=== PATIENT | male | born 1980 | race Caucasian/White ===

== ENCOUNTER 2019-09-22 13:36 | Emergency (ER) | payer OTHER ==
[2019-09-22 13:43] VITALS: BP 137/81; PULSE 55; RESP 20; TEMP 97.9
[2019-09-22] MEDS ORDERED: SODIUM CHLORIDE 0.9% 1,000 ML IV STA (14:07)
[2019-09-22] MEDS ORDERED: ONDANSETRON 4 MG/2 ML VIAL IVP STA (14:07)
[2019-09-22] MEDS ORDERED: LIDOCAINE 4% CREAM 5 GM TUBE TOPICAL ONE (14:08)
[2019-09-22 14:21] LABS: Basophils # (A) 0.1 k/uL (0-0.2); Basophils % (A) 1 %; Eosinophils # (A) 0.2 k/uL (0-0.7); Eosinophils % (A) 2 %; HCT 53.4 % (39.0-53.0); HGB 17.6 gm/dL (13.0-17.5); Lymphocytes # (A) 2.1 k/uL (1.0-4.8); Lymphocytes % (A) 19 %; MCH 30.8 pg (25.0-35.0); MCHC 32.9 g/dL (31.0-37.0); MCV 93.7 fL (80.0-100.0); Mean Platelet Volume 9.5; Monocytes # (A) 0.6 k/uL (0-1.0); Monocytes % (A) 6 %; Neutrophils % (A) 72 %; Platelet Count 213 k/uL (150-450); RDW 12.7 % (11.5-15.5); WBC 11.2 k/uL (3.8-10.6)
[2019-09-22 14:24] LABS: Appearance,Urine Clear (Clear); Bilirubin,Urine Negative (Negative); Blood,Urine Negative (Negative); Color,Urine Light Yellow; Glucose,Urine (UA) Negative (Negative); Ketones,Urine Negative (Negative); Leukocyte Esterase,Urine Negative (Negative); Nitrite,Urine Negative (Negative); PH, Urine 6.5 (5.0-8.0); Protein,Urine Negative (Negative); Specific Gravity,Urine 1.008 (1.001-1.035); Urobilinogen,Urine <2.0 mg/dL (<2.0)
--- NOTE | 2019-09-22 14:32 | ED ---
Abdominal Pain HPI - General Chief Complaint: Abdominal Pain Stated Complaint: pain and bleeding, anal region Time Seen by Provider: 09/22/19 13:59 Source: patient, RN notes reviewed Mode of arrival: ambulatory Limitations: no limitations - History of Present Illness Initial Comments: 39-year-old male presents emergency Department chief complaint of abdominal pain. Patient states that he's had on-and-off abdominal pain for last 8-9 years. Patient states she's had intermittent bleeding which has been evaluated with 3 colonoscopies with known polyps. Patient states that his mother and father both had colon cancer. Patient has been screened several times secondary to bleeding, pain and family history. Patient states that this pain increasing last couple days and he was seen at [facility] and sent here for further evaluation. He states he has a fullness sensation in his rectum and he states that it feels like something is protruding. Patient denies any dysuria, hematuria denies any melanotic stools. Patient had no recent fevers chills chest pain shortness of breath no episodes of fatigue. - Related Data Previous Rx's Medication Instructions Recorded Hydrocortisone/Pramoxine 1 applic RECTAL BID #1 bottle 09/22/19 [Proctofoam-Hc 1%-1% Foam] Lidocaine [Lidocaine 5% Rectal 1 applic RECTAL Q3-4H #15 gm 09/22/19 Cream] Allergies Allergy/AdvReac Type Severity Reaction Status Date / Time No Known Allergies Allergy Verified 09/22/19 13:43 Review of Systems ROS Statement: Those systems with pertinent positive or pertinent negative responses have been documented in the HPI. ROS Other: All systems not noted in ROS Statement are negative. Past Medical History Past Medical History: No Reported History History of Any Multi-Drug Resistant Organisms: None Reported Additional Past Surgical History / Comment(s): colon polyps removed, Past Psychological History: Depression Smoking Status: Current every day smoker Past Alcohol Use History: None Reported Past Drug Use History: Marijuana General Exam Limitations: no limitations General appearance: alert, in no apparent distress Head exam: Present: atraumatic, normocephalic, normal inspection Eye exam: Present: normal appearance, PERRL, EOMI. Absent: scleral icterus, conjunctival injection, periorbital swelling ENT exam: Present: normal exam, normal oropharynx, mucous membranes moist Neck exam: Present: normal inspection, full ROM. Absent: tenderness, meningismu s, lymphadenopathy Respiratory exam: Present: normal lung sounds bilaterally. Absent: respiratory distress, wheezes, rales, rhonchi, stridor Cardiovascular Exam: Present: regular rate, normal rhythm, normal heart sounds. Absent: systolic murmur, diastolic murmur, rubs, gallop, clicks GI/Abdominal exam: Present: soft, tenderness (Minimal diffuse), normal bowel sounds. Absent: distended, guarding, rebound, rigid Back exam: Absent: CVA tenderness (R), CVA tenderness (L) Skin exam: Present: warm, dry, intact, normal color. Absent: rash Course Vital Signs 09/22/19 13:39 Temperature 97.9 F Pulse Rate 55 L Respiratory 20 Rate Blood Pressure 137/81 O2 Sat by Pulse 100 Oximetry Medical Decision Making - Medical Decision Making 39-year-old male presented for rectal pain, abdominal pain. He's had ongoing issues associated this. He does have an external hemorrhoid which is thrombosed, protruding. He will follow-up with surgery for hemorrhoidectomy and possible colonoscopy. Patient we discharged with Proctofoam, lidocaine return parameters were discussed. - Lab Data Result diagrams: 09/22/19 13:55 09/22/19 13:55 Lab Results 09/22/19 09/22/19 09/22/19 Range/Units 13:55 13:55 13:55 WBC 11.2 H (3.8-10.6) k/uL RBC 5.70 (4.30-5.90) m/uL Hgb 17.6 H (13.0-17.5) gm/dL Hct 53.4 H (39.0-53.0) % MCV 93.7 (80.0-100.0) fL MCH 30.8 (25.0-35.0) pg MCHC 32.9 (31.0-37.0) g/dL RDW 12.7 (11.5-15.5) % Plt Count 213 (150-450) k/uL Neutrophils % 72 % Lymphocytes % 19 % Monocytes % 6 % Eosinophils % 2 % Basophils % 1 % Neutrophils # 8.0 H (1.3-7.7) k/uL Lymphocytes # 2.1 (1.0-4.8) k/uL Monocytes # 0.6 (0-1.0) k/uL Eosinophils # 0.2 (0-0.7) k/uL Basophils # 0.1 (0-0.2) k/uL Sodium 142 (137-145) mmol/L Potassium 4.6 (3.5-5.1) mmol/L Chloride 105 (98-107) mmol/L Carbon Dioxide 30 (22-30) mmol/L Anion Gap 7 mmol/L BUN 11 (9-20) mg/dL Creatinine 0.92 (0.66-1.25) mg/dL Est GFR (CKD-EPI)AfAm >90 (>60 ml/min/1.73 sqM) Est GFR (CKD-EPI)NonAf >90 (>60 ml/min/1.73 sqM) Glucose 104 H (74-99) mg/dL Calcium 9.6 (8.4-10.2) mg/dL Total Bilirubin 0.4 (0.2-1.3) mg/dL AST 35 (17-59) U/L ALT 39 (4-49) U/L Alkaline Phosphatase 69 (38-126) U/L Total Protein 6.9 (6.3-8.2) g/dL Albumin 4.3 (3.5-5.0) g/dL Lipase 399 H (23-300) U/L Urine Color Light Yellow Urine Appearance Clear (Clear) Urine pH 6.5 (5.0-8.0) Ur Specific [place] 1.008 (1.001-1.035) Urine Protein Negative (Negative) Urine Glucose (UA) Negative (Negative) Urine Ketones Negative (Negative) Urine Blood Negative (Negative) Urine Nitrite Negative (Negative) Urine Bilirubin Negative (Negative) Urine Urobilinogen <2.0 (<2.0) mg/dL Ur Leukocyte Esterase Negative (Negative) Disposition Clinical Impression: Rectal pain, Internal hemorrhoid Disposition: ADMITTED IP TO THIS HOSP Instructions (If sedation given, give patient instructions): Hemorrhoids (ED) Additional Instructions: Please return to the Emergency Department if symptoms worsen or any other concerns. Prescriptions: Lidocaine [Lidocaine 5% Rectal Cream] 1 applic RECTAL Q3-4H #15 gm Hydrocortisone/Pramoxine [Proctofoam-Hc 1%-1% Foam] 1 applic RECTAL BID #1 bot tle Is patient prescribed a controlled substance at d/c from ED?: No Referrals: Michelle Stoddard MD [Primary Care Provider] - 1-2 days Americo Jones MD [STAFF PHYSICIAN] - 1-2 days Time of Disposition: 14:56
[2019-09-22 14:33] LABS: ALT 39 U/L (4-49); AST 35 U/L (17-59); African American GFR (CKD) >90 (>60 ml/min/1.73 sqM); Albumin 4.3 g/dL (3.5-5.0); Alkaline Phosphatase 69 U/L (38-126); Anion Gap 7 mmol/L; Blood Urea Nitrogen 11 mg/dL (9-20); Calcium 9.6 mg/dL (8.4-10.2); Carbon Dioxide 30 mmol/L (22-30); Chloride 105 mmol/L (98-107); Glucose 104 mg/dL (74-99); Non-African American GFR(CKD) >90 (>60 ml/min/1.73 sqM); Potassium 4.6 mmol/L (3.5-5.1); Sodium 142 mmol/L (137-145); Total Bilirubin 0.4 mg/dL (0.2-1.3); Total Protein 6.9 g/dL (6.3-8.2)
== END 2019-09-22 15:22 | disposition other institution (70) ==
LOC: EC 13:36
DX: K64.5 Perianal venous thrombosis (principal); K64.8 Other hemorrhoids; R10.9 Unspecified abdominal pain; F17.200 Nicotine dependence, unspecified, uncomplicated; Z86.010 Personal history of colon polyps; Z98.890 Other specified postprocedural states
CPT/HCPCS: 36415; 80053; 83690; 85025; 81003; 99284; 96374; 96361; J2405

== ENCOUNTER 2020-02-25 17:45 | Inpatient (IN) | payer OTHER ==
[2020-02-25 17:53] LABS: Glucose,Whole Blood 97 mg/dL (75-99)
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
[2020-02-25] MEDS ORDERED: SODIUM CHLORIDE 0.9% 1,000 ML IV STA (18:12)
[2020-02-25 18:14] LABS: Basophils # (A) 0.1 k/uL (0-0.2); Basophils % (A) 1 %; Eosinophils # (A) 0.2 k/uL (0-0.7); Eosinophils % (A) 2 %; HCT 47.7 % (39.0-53.0); HGB 16.7 gm/dL (13.0-17.5); Ionized Calcium 5.1 mg/dL (4.5-5.3); Lymphocytes # (A) 2.8 k/uL (1.0-4.8); Lymphocytes % (A) 26 %; MCH 31.7 pg (25.0-35.0); MCV 90.6 fL (80.0-100.0); Mean Platelet Volume 8.5; Monocytes # (A) 0.5 k/uL (0-1.0); Monocytes % (A) 5 %; Neutrophils # (A) 7.2 k/uL (1.3-7.7); Neutrophils % (A) 66 %; Platelet Count 289 k/uL (150-450); RBC 5.27 m/uL (4.30-5.90); WBC 10.9 k/uL (3.8-10.6)
[2020-02-25 18:21] LABS: ALT 30 U/L (4-49); AST 31 U/L (17-59); African American GFR (CKD) >90 (>60 ml/min/1.73 sqM); Albumin 3.9 g/dL (3.5-5.0); Alkaline Phosphatase 78 U/L (38-126); Anion Gap 9 mmol/L; Blood Urea Nitrogen 12 mg/dL (9-20); Calcium 9.6 mg/dL (8.4-10.2); Carbon Dioxide 21 mmol/L (22-30); Chloride 108 mmol/L (98-107); Glucose 92 mg/dL (74-99); Magnesium 1.8 mg/dL (1.6-2.3); Non-African American GFR(CKD) >90 (>60 ml/min/1.73 sqM); Potassium 3.8 mmol/L (3.5-5.1); Sodium 138 mmol/L (137-145); Total Bilirubin 0.7 mg/dL (0.2-1.3); Total Protein 6.4 g/dL (6.3-8.2)
--- NOTE | 2020-02-25 18:35 | XR ---
EXAMINATION TYPE: XR chest 1V portable DATE OF EXAM: 02/25/2020 COMPARISON: NONE HISTORY: Arm numbness TECHNIQUE: Single view FINDINGS: Heart and mediastinum are normal. Lungs are clear. Diaphragm is normal. Bony thorax appears normal. There are chest leads. IMPRESSION: Normal chest. Normal heart.
[2020-02-25] MEDS ORDERED: NALOXONE 0.4 MG/ML 1 ML VIAL IV PRN (18:38)
[2020-02-25 18:46] LABS: VBG PH 7.47 (7.31-7.41)
[2020-02-25] MEDS: SODIUM CHLORIDE 0.9% 1,000 ML IV SCH (18:58)
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
[2020-02-25] MEDS ORDERED: VERAPAMIL 2.5 MG/ML 2 ML AMP ONE (19:03)
[2020-02-25] MEDS ORDERED: LIDOCAINE 1% INJ 10MG/ML (20 ML MDV) ONE (19:03)
[2020-02-25] MEDS ORDERED: LIDOCAINE 1% INJ 10MG/ML (20 ML MDV) SQ ONE (19:24)
[2020-02-25] MEDS ORDERED: MIDAZOLAM 2 MG/2 ML VIAL IVP ONE (19:24)
[2020-02-25] MEDS ORDERED: VERAPAMIL SYRINGE (5 MG/10 ML) INTRAARTER ONE ×2 (19:26→19:30)
[2020-02-25] MEDS ORDERED: IV FLUID CONTINUATION 500 ML IV ONE (19:32)
[2020-02-25] MEDS ORDERED: IOPAMIDOL-370 100ML BTL INJ ONE (19:40)
--- NOTE | 2020-02-25 19:43 | P.PCN ---
Date of Procedure: 02/25/20 Operative Findings: CARDIAC CATHETERIZATION PERFORMING PHYSICIAN: Will Cross MD, RPVI PROCEDURE PERFORMED: 1. Selective right and left coronary angiogram 2. Left heart catheterization INDICATION: This is a 39-year-old gentleman with significant history of smoking and significant family history of CAD presented to the emergency department by ambulance with a chest discomfort and EKG changes concerning for ischemia. Because of that a heart catheterization was advised COMPLICATION: None APPROACH: Right radial artery LEVEL OF SEDATION: Moderate was sedation length of 12 minutes PROCEDURE DESCRIPTION: After obtaining an informed consent, the patient was brought to cardiac laboratory mechanic helper. Local anesthesia was performed using lidocaine subcutaneously. The right radial artery was cannulated using Seldinger technique, the guidewire passed easily, following that we advanced a 5-Welsh sheath dilator assembly, the wire and dilator were removed and sheath was flushed. Following that, 2 mg of verapamil along with 5000 unit heparin were given. Selective right and left coronary angiogram using a 6-Welsh JR3.5 and JL 3.5 catheters. Following that we did left heart catheterization using 6-Welsh pigtail catheter. The procedure was completed there was no complication. SELECTIVE CORONARY ANGIOGRAM: The right coronary artery: Is a large caliber vessel and a dominant vessel. Its angiographically normal. Distally bifurcates into PDA and PLV branches and both appeared to be angiograp hically normal. Left main: It is angiographically normal. Bifurcates into LCx and LAD The left circumflex: Is a large caliber vessel and codominant vessel. The left circumflex itself is angiographically normal. Gives rises in the proximal portion into a large OM branch which appeared to be normal. The circumflex distally continue as a PDA branch and seems to be angiographically normal as well. The left anterior descending artery: Is a large caliber vessel. Its angiographically normal. Gives rises into multiple small diagonal branches a appeared to be angiographically normal. HEMODYNAMICS: The LVEDP was 12 mmHg without significant gradient across aortic valve CONCLUSION: 1. Normal coronary angiogram 2. Normal LVEDP POSTPROCEDURE MANAGEMENT: 1. Medical treatment 2. Rule out aortic dissection
--- NOTE | 2020-02-25 21:21 | CT ---
EXAMINATION TYPE: CT angio thor/abd pel aorta DATE OF EXAM: 02/25/2020 COMPARISON: None HISTORY: Rule out aortic dissection. CT DLP: 1210.9 mGycm Automated exposure control for dose reduction was used. CONTRAST: Performed without and with IV Contrast, patient injected with 100ml mL of Isovue 370. Images are obtained from the thoracic inlet to the floor the pelvis with IV contrast and 3-D post pro cessed images. There is groundglass interstitial infiltrate in the posterior lung malave. There is no evidence of a pulmonary mass. There is mild subsegmental atelectasis at the posterior lung bases. Heart size is nor mal. There is no pericardial effusion. There are no hilar masses. Thoracic aorta is intact. There is no aneurysm or dissection. Pulmonary arteries appear normal. I see no filling defect. Liver spleen pancreas gallbladder appear normal. Bile ducts are not dilated. There is no adrenal mass. Kidneys show satisfactory contrast opacification. There is no hydronephrosi s. Ureters are not dilated. Bladder distends smoothly. There is no inguinal hernia. There is no free fluid in the pelvis. Appendix is posterior and appears normal. There is no mesenteric edema. There is no ascites or free air. There is no bowel obstruction. There is normal contrast opacification of the abdominal aorta and the renal arteries. There is wide p atency of the iliac and femoral arteries. There is wide patency of the superior mesenteric artery. Th ere is a short segment of severe narrowing of the proximal celiac artery more than 85%. The bony thorax is intact. The bony pelvis is intact. Thoracic and lumbar spine appear normal. 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 No evidence of aortic aneurysm or dissection . No evidence of pulmonary embolism.
--- NOTE | 2020-02-26 11:14 | P.PN ---
Subjective Progress Note Date: 02/26/20 This is a 39-year-old gentleman with history of "heart attack" as well as history of smoking as well as significant family history of coronary artery disease presented to the emergency room complaining of left arm discomfort. The patient somewhat is a poor historian. He presented to the hospital with we akness and tiredness, symptoms of diaphoresis and discomfort in the left upper chest area. EKG reviewed in the emergency room showed ST elevation in the inferior leads and therefore the patient was taken to the cardiac catheterization lab by Dr. Rubi. Heart catheterization did not reveal any sign ificantly obstructive coronary artery disease. Subsequent to that patient underwent a CAT scan of the chest, did not reveal any evidence of aortic aneurysm or dissection and no evidence of pulmonary embolism. The patient was seen and examined this morning, he denies any chest discomfort but just feels tired and weak. Blood pressure 104/60 with a heart rate in the 50s, 97% on room air. Objective - Vital Signs Vital signs: Vital Signs Temp 97.6 F 02/26/20 04:00 Pulse 52 L 02/26/20 04:00 Resp 15 02/26/20 04:00 BP 104/64 02/26/20 04:00 Pulse Ox 97 02/26/20 04:00 Intake & Output 02/25/20 02/26/20 02/26/20 18:59 06:59 18:59 Intake Total 100 Balance 100 Weight 65.771 kg 63.8 kg Intake: IV 100 Other: Voiding Method Urinal - Exam PHYSICAL EXAMINATION: GENERAL: 39-year-old gentleman in no acute distress at the time of my examination HEENT: Head is atraumatic, normocephalic. Pupils equal, round. Sclera anicteric. Conjunctiva are clear. Mucous membranes of the mouth are moist. Neck is supple. There is no elevated jugular venous pressure. No carotid bruit is heard. HEART EXAMINATION: Heart S1, S2 normal. No murmur or gallop heard. CHEST EXAMINATION: Lungs are clear to auscultation and precussion. No chest wall tenderness is noted on palpation or with deep breathing. ABDOMEN: Soft, nontender. Bowel sounds are heard. No organomegaly noted. EXTREMITIES: 2+ peripheral pulses with no evidence of peripheral edema and no calf tenderness noted. Right radial site clean and dry, good distal pulse. NEUROLOGIC patient is awake, alert and oriented 3 . - Labs CBC & Chem 7: 02/25/20 18:03 02/25/20 18:03 Labs: Abnormal Lab Results - Last 24 Hours (Table) 02/25/20 02/25/20 02/25/20 Range/Units 18:03 18:03 18:03 WBC 10.9 H (3.8-10.6) k/uL VBG pH (7.31-7.41) VBG pCO2 (37-51) mmHg Chloride 108 H (98-107) mmol/L Carbon Dioxide 21 L (22-30) mmol/L Phosphorus (2.5-4.5) mg/dL PTH Intact 10.8 L (14.0-72.0) pg/mL 02/25/20 02/25/20 Range/Units 18:03 18:30 WBC (3.8-10.6) k/uL VBG pH 7.47 H (7.31-7.41) VBG pCO2 35 L (37-51) mmHg Chloride (98-107) mmol/L Carbon Dioxide (22-30) mmol/L Phosphorus 1.1 L (2.5-4.5) mg/dL PTH Intact (14.0-72.0) pg/mL Assessment and Plan Plan: Assessment and plan #1 symptoms of tiredness and weakness with associated left upper chest discomfort and left arm discomfort. Heat initial EKG suggestive of possible inferior STEMI. Cardiac catheterization was performed which did not reveal any significantly obstructive coronary artery disease. CTA of the chest was negative for any dissection, no evidence of pulmonary embolism. #2 nicotine dependence #3 family history of premature coronary artery disease Plan We have requested a sed rate, echocardiogram with Doppler study, and EKG be performed this morning. We've also put in for 2 subsequent troponins. Further recommendations to follow. DNP note has been reviewed, I agree with a documented findings and plan of care. Patient was seen and examined.
--- NOTE | 2020-02-26 12:29 | ECHOF ---
Referral Reason:chest pain MEASUREMENTS -------- HEIGHT: 170.2 cm WEIGHT: 63.5 kg BP: RVIDd: 2.4 cm (< 3.3) IVSd: 0.5 cm (0.6 - 1.1) LVIDd: 4.2 cm (3.9 - 5.3) LVPWd: 0.8 cm (0.6 - 1.1) IVSs: 1.1 cm LVIDs: 2.7 cm LVPWs: 1.3 cm LAESV Index (A-L): 15.72 ml/m Ao Diam: 2.7 cm (2.0 - 3.7) AV Cusp: 1.9 cm (1.5 - 2.6) LA Diam: 3.1 cm (2.7 - 3.8) MV EXCURSION: 18.525 mm (> 18.000) MV EF SLOPE: 115 mm/s (70 - 150) EPSS: 1.0 cm MV E Abrahan: 0.81 m/s MV DecT: 195 ms MV A Abrahan: 0.67 m/s MV E/A Ratio: 1.21 RAP: 5.00 mmHg RVSP: 20.06 mmHg FINDINGS -------- Sinus rhythm. This was a technically good study. The left ventricular size is normal. Left ventricular wall thickness is normal. Overall left vent ricular systolic function is normal with, an EF between 55 - 60 %. The diastolic filling pattern is normal for the age of the patient 7.13. The right ventricle is normal in size. The left atrial size is normal. Normal LA size by volume 22+/-6 ml/m2. The right atrial size is normal. The aortic valve is trileaflet and appears structurally normal. The mitral valve is normal. The mitral valve leaflets are mildly thickened. There is trace mitral regurgitation. The tricuspid valve appears structurally normal. Trace tricuspid regurgitation present. Right damari tricular systolic pressure is normal at < 35 mmHg. There is no pulmonic regurgitation present. The aortic root size is normal. Normal inferior vena cava with normal inspiratory collapse consistent with estimated right atrial pre ssure of 5 mmHg. There is no pericardial effusion. CONCLUSIONS -------- 1. Sinus rhythm. 2. This was a technically good study. 3. The left ventricular size is normal. 4. Left ventricular wall thickness is normal. 5. Overall left ventricular systolic function is normal with, an EF between 55 - 60 %. 6. The diastolic filling pattern is normal for the age of the patient 7.13 7. The right ventricle is normal in size. 8. The left atrial size is normal. 9. Normal LA size by volume 22+/-6 ml/m2. 10. The right atrial size is normal. 11. The aortic valve is trileaflet and appears structurally normal. 12. The mitral valve is normal. 13. The mitral valve leaflets are mildly thickened. 14. There is trace mitral regurgitation. 15. The tricuspid valve appears structurally normal. 16. Trace tricuspid regurgitation present. 17. Right ventricular systolic pressure is normal at < 35 mmHg. 18. There is no pulmonic regurgitation present. 19. The aortic root size is normal. 20. Normal inferior vena cava with normal inspiratory collapse consistent with estimated right atrial pressure of 5 mmHg. 21. There is no pericardial effusion. MAP EDITOR: Gill Barnes RDCS
[2020-02-26] MEDS ORDERED: HYDROcodone/APAP 7.5-325MG 1 EACH TAB PO PRN (13:21)
[2020-02-26] MEDS ORDERED: HYDROmorphone 0.5 MG/0.5 ML SYRINGE IVP PRN (13:21)
[2020-02-26] MEDS ORDERED: ALPRAZolam 0.25 MG TAB PO PRN (13:22)
[2020-02-26] MEDS ORDERED: TEMAZEPAM 15 MG CAP PO PRN (14:12)
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
[2020-02-26 16:21] LABS: ALT 25 U/L (4-49); AST 24 U/L (17-59); African American GFR (CKD) >90 (>60 ml/min/1.73 sqM); Albumin 3.2 g/dL (3.5-5.0); Alkaline Phosphatase 66 U/L (38-126); Anion Gap 5 mmol/L; Blood Urea Nitrogen 10 mg/dL (9-20); Calcium 8.6 mg/dL (8.4-10.2); Carbon Dioxide 25 mmol/L (22-30); Chloride 107 mmol/L (98-107); Glucose 95 mg/dL (74-99); Non-African American GFR(CKD) >90 (>60 ml/min/1.73 sqM); Potassium 4.4 mmol/L (3.5-5.1); Sodium 137 mmol/L (137-145); Total Bilirubin 0.3 mg/dL (0.2-1.3); Total Protein 5.4 g/dL (6.3-8.2)
[2020-02-26] MEDS: BACLOFEN 10 MG TAB PO SCH ×2 (17:53→22:18)
[2020-02-26 18:17] LABS: Appearance,Urine Clear (Clear); Bilirubin,Urine Negative (Negative); Blood,Urine Negative (Negative); Color,Urine Light Yellow; Glucose,Urine (UA) Negative (Negative); Ketones,Urine Negative (Negative); Leukocyte Esterase,Urine Negative (Negative); Nitrite,Urine Negative (Negative); PH, Urine 6.5 (5.0-8.0); Protein,Urine Negative (Negative); Specific Gravity,Urine 1.006 (1.001-1.035); Urobilinogen,Urine <2.0 mg/dL (<2.0)
[2020-02-27] MEDS: SODIUM CHLORIDE 0.9% 1,000 ML IV SCH ×2 (01:15→13:18)
[2020-02-27] MEDS: BACLOFEN 10 MG TAB PO SCH ×2 (05:56→13:18)
[2020-02-27] MEDS ORDERED: PANTOPRAZOLE 40 MG TABLET PO SCH (07:30)
[2020-02-27 08:55] LABS: Basophils # (A) 0.1 k/uL (0-0.2); Basophils % (A) 1 %; Eosinophils # (A) 0.2 k/uL (0-0.7); Eosinophils % (A) 3 %; HCT 47.1 % (39.0-53.0); HGB 15.1 gm/dL (13.0-17.5); Lymphocytes # (A) 2.2 k/uL (1.0-4.8); Lymphocytes % (A) 26 %; MCH 29.8 pg (25.0-35.0); MCV 93.2 fL (80.0-100.0); Mean Platelet Volume 8.5; Monocytes # (A) 0.5 k/uL (0-1.0); Monocytes % (A) 5 %; Neutrophils # (A) 5.4 k/uL (1.3-7.7); Neutrophils % (A) 63 %; Platelet Count 219 k/uL (150-450); RBC 5.06 m/uL (4.30-5.90); RDW 13.2 % (11.5-15.5); WBC 8.5 k/uL (3.8-10.6)
[2020-02-27] MEDS ORDERED: NICOTINE 14MG/24HR PATCH TRANSDERM SCH (09:00)
--- NOTE | 2020-02-27 12:19 | P.PN ---
Subjective Progress Note Date: 02/27/20 This is a 39-year-old gentleman with history of "heart attack" as well as history of smoking as well as significant family history of coronary artery disease presented to the emergency room complaining of left arm discomfort. The patient somewhat is a poor historian. He presented to the hospital with we akness and tiredness, symptoms of diaphoresis and discomfort in the left upper chest area. EKG reviewed in the emergency room showed ST elevation in the inferior leads and therefore the patient was taken to the cardiac catheterization lab by Dr. Rubi. Heart catheterization did not reveal any sign ificantly obstructive coronary artery disease. Subsequent to that patient underwent a CAT scan of the chest, did not reveal any evidence of aortic aneurysm or dissection and no evidence of pulmonary embolism. The patient was seen and examined this morning, he denies any chest discomfort but just feels tired and weak. Blood pressure 104/60 with a heart rate in the 50s, 97% on room air. 02/27/2020 Patient seen and examined this morning, hemodynamically stable, blood pressure 106/60 with a heart rate in the 50s to 60s. Echocardiogram with Doppler study was performed which revealed an ejection fraction of 55-60%. Sed rate was normal. Objective - Vital Signs Vital signs: Vital Signs Temp 97.9 F 02/27/20 03:20 Pulse 52 L 02/27/20 03:20 Resp 18 02/27/20 03:20 BP 105/65 02/27/20 03:20 Pulse Ox 96 02/27/20 03:20 Intake & Output 02/26/20 02/27/20 02/27/20 18:59 06:59 18:59 Intake Total 458 240 Balance 458 240 Weight 62.5 kg Intake: Oral 458 240 Other: Voiding Method Toilet Toilet # Voids 4 1 1 - Exam PHYSICAL EXAMINATION: GENERAL: 39-year-old gentleman in no acute distress at the time of my examination HEENT: Head is atraumatic, normocephalic. Pupils equal, round. Sclera anicteric. Conjunctiva are clear. Mucous membranes of the mouth are moist. Neck is supple. There is no elevated jugular venous pressure. No carotid bruit is heard. HEART EXAMINATION: Heart S1, S2 normal. No murmur or gallop heard. CHEST EXAMINATION: Lungs are clear to auscultation and precussion. No chest wall tenderness is noted on palpation or with deep breathing. ABDOMEN: Soft, nontender. Bowel sounds are heard. No organomegaly noted. EXTREMITIES: 2+ peripheral pulses with no evidence of peripheral edema and no calf tenderness noted. Right radial site clean and dry, good distal pulse. NEUROLOGIC patient is awake, alert and oriented 3 . - Labs CBC & Chem 7: 02/27/20 07:58 02/26/20 15:30 Labs: Abnormal Lab Results - Last 24 Hours (Table) 02/26/20 Range/Units 15:30 Total Protein 5.4 L (6.3-8.2) g/dL Albumin 3.2 L (3.5-5.0) g/dL Microbiology - Last 24 Hours (Table) 02/26/20 18:05 Urine Culture - Preliminary Urine,Clean Catch Assessment and Plan Plan: Assessment and plan #1 symptoms of tiredness and weakness with associated left upper chest discomfort and left arm discomfort. Heat initial EKG suggestive of possible inferior STEMI. Cardiac catheterization was performed which did not reveal any significantly obstructive coronary artery disease. CTA of the chest was negative for any dissection, no evidence of pulmonary embolism. #2 nicotine dependence #3 family history of premature coronary artery disease Plan From cardiology's perspective, patient may be able to be discharged home today. We'll make a follow-up appointment in the office with Dr. Rubi post discharge. DNP note has been reviewed, I agree with a documented findings and plan of care. Patient was seen and examined.
[2020-02-27 12:46] VITALS: PULSE 66; RESP 16
[2020-02-27 12:49] VITALS: BP 116/77; TEMP 98.2
--- NOTE | 2020-02-28 00:28 | DS ---
DISCHARGE SUMMARY DATE OF SERVICE: 02/27/2020 FINAL DIAGNOSES: 1. Chest pain, left-sided, possibly musculoskeletal, negative cardiac catheterization. 2. 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 3. Hypophosphatemia. 4. Low parathyroid hormone. 5. Increased WBC. 6. History of metal behind the right eye. 7. History of migraine. 8. History of depression. 9. History of nicotine dependence. 10.History of THC. HISTORY OF PRESENT ILLNESS: This 39-year-old gentleman with past medical history of multiple medical problems admitted with left-sided chest pain. Myocardial infarction was suspected initially. Cardiac cath showed no evidence of any coronary disease. Patient treated closely. CT scan showed minimal stenosis celiac artery. Recommend close outpatient followup with primary and vascular surgery. Otherwise cardiology saw the patient and cleared the patient for discharge. The patient also had hyperphosphatemia with low parathyroid hormone. Recommend endocrine consult with Dr. Sales. On exam, vitals signs stable. Cardiovascular S1, S2. Abdomen soft. Nervous system: No focal deficits. DISCHARGE ADVICE AND MEDICATIONS: 1. Diet is cardiac diet. 2. Activity limited until followup. 3. Followup with Dr. Stoddard 1-2 days. 4. Follow up with Cardiology as recommended with Dr. Cross. 5. Follow up with Dr. Yasmeen Sales, Endocrinology as mentioned. 6. Baclofen. 7. Lioresal 10 mg q.8 p.r.n. 8. Tylenol p.r.n. Once again, patient discharged in stable condition with guarded prognosis. MMODL / IJN: [id number] /
== END 2020-02-27 13:18 | disposition home or self-care (01) | DRG 287 ==
LOC: EC 17:45 → 2SICU 18:38 → 3SCARD 19:43
PROVIDERS: ADMIT Hospitalist; ATTEND Hospitalist
PROC: B2111ZZ Fluoroscopy of Multiple Coronary Arteries using Low Osmolar Contrast (ICD-10-PCS; principal; 2020-02-25 19:04)
PROC: 4A023N7 Measurement of Cardiac Sampling and Pressure, Left Heart, Percutaneous Approach (ICD-10-PCS; principal; 2020-02-25 19:04)
DX: R07.89 Other chest pain (principal); E83.39 Other disorders of phosphorus metabolism; I25.2 Old myocardial infarction; F17.200 Nicotine dependence, unspecified, uncomplicated; G83.24 Monoplegia of upper limb affecting left nondominant side; G43.909 Migraine, unspecified, not intractable, without status migrainosus; R20.2 Paresthesia of skin; R53.1 Weakness; R53.83 Other fatigue; R94.31 Abnormal electrocardiogram [ECG] [EKG]; F32.9 Major depressive disorder, single episode, unspecified; D72.829 Elevated white blood cell count, unspecified; Z11.59 Encounter for screening for other viral diseases; Z86.010 Personal history of colon polyps; Z82.49 Family history of ischemic heart disease and other diseases of the circulatory system
CPT/HCPCS: 36415; 71045; 71275; 74174; 80053; 81003; 82330; 82803; 83735; 83970; 84100; 84484; 85025; 85379; 85652; 86140; 87086; 93005; 93306; 93458; 96360; 99285

== ENCOUNTER 2022-02-13 19:03 | Emergency (ER) | payer OTHER ==
[2022-02-13 19:20] VITALS: BP 119/70; PULSE 63; RESP 18; TEMP 97.7
--- NOTE | 2022-02-13 20:27 | XR ---
EXAMINATION TYPE: XR hand complete RT, XR wrist complete RT DATE OF EXAM: 02/13/2022 7:51 PM INDICATION: Patient age:Male; 41 years old; Reason for study: Pain. COMPARISON: None TECHNIQUE: Frontal and lateral oblique views of the right hand and wrist were obtained. FINDINGS: Normal alignment of the visualized joints. No acute osseous pathology is identified. No e vidence of soft tissue swelling. Well-corticated lesion seen on lateral view anterior to the wrist fe lt to be chronic. IMPRESSION: No acute osseous pathology.
[2022-02-13] MEDS ORDERED: KETOROLAC 15 MG/ML 1 ML VIAL IM STA (20:50)
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
== END 2022-02-13 21:01 | disposition home or self-care (01) ==
LOC: EC 19:03
DX: S63.501A Unspecified sprain of right wrist, initial encounter (principal); I25.2 Old myocardial infarction; F17.200 Nicotine dependence, unspecified, uncomplicated; F12.90 Cannabis use, unspecified, uncomplicated; W23.0XXA Caught, crushed, jammed, or pinched between moving objects, initial encounter
CPT/HCPCS: 73110; 73130; 99283; 96372; J1885

== ENCOUNTER 2022-03-20 15:30 | Emergency (ER) | payer OTHER ==
[2022-03-20 16:01] VITALS: BP 117/70; PULSE 60; RESP 18; TEMP 98
[2022-03-20] MEDS ORDERED: KETOROLAC 15 MG/ML 1 ML VIAL IM STA (16:23)
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
--- NOTE | 2022-03-20 16:42 | XR ---
EXAMINATION TYPE: XR foot complete RT DATE OF EXAM: 03/20/2022 COMPARISON: NONE HISTORY: Pain TECHNIQUE: 3 view FINDINGS: Metatarsals are intact. I see no fracture nor dislocation. Toes appear intact. Joint spaces are fairly normal. IMPRESSION: Negative right foot exam. No evidence of fracture of the big toe.
== END 2022-03-20 16:54 | disposition home or self-care (01) ==
LOC: EC 15:30
DX: S90.111A Contusion of right great toe without damage to nail, initial encounter (principal); I25.2 Old myocardial infarction; F32.A Depression, unspecified; F17.200 Nicotine dependence, unspecified, uncomplicated; F12.90 Cannabis use, unspecified, uncomplicated; Z79.899 Other long term (current) drug therapy; W20.8XXA Other cause of strike by thrown, projected or falling object, initial encounter
CPT/HCPCS: 73630; 99283; 96372; J1885